=== PATIENT | male | born 1975 | race Two or more races ===

== ENCOUNTER 2025-02-15 14:14 | Emergency (ER) | payer BC, OTHER ==
[~2025-02-15] VITALS: Ht 157.5 cm; Wt 88.5 kg
--- NOTE | 2025-02-15 14:57 | ED.PDOC ---
History of Present Illness HPI Comments 49 y/o M, with PMHx of gallstones presents to the ED for CC of back pain. Patient states, he has been experiencing RUQ abdominal pain that radiates to his back x1week. Patient reports, that he was suppose to receive a laparoscopic cholecystectomy to remove stones however, has not had the procedure done yet; unknown scheduled date. Patient denies nausea, vomiting, diarrhea, dysuria, hematuria, fever, or chills. No other symptoms or modifying factors are present at this time. Chief Complaint: Back Pain Time Seen by MD: 14:50 Reviewed Notes: Nurses Notes, Medications, Allergies Allergies: Coded Allergies: NO KNOWN ALLERGIES (Unverified , 02/15/25) Information Source: Patient Mode of Arrival: Ambulatory Severity: Moderate Timing: Weeks Duration: Since onset Prehospital treatment: None Past Medical History PAST MEDICAL HISTORY: Gallstones Surgical History: Denies all surgeries Family History Family History: Unknown Social History Smoker: Non-Smoker Alcohol: Denies ETOH Use Drugs: Denies Drug Use Lives In: Home Constitutional: denies: chills, diaphoresis, fatigue, fever, malaise, sweats, weakness, others EENTM: denies: blurred vision, double vision, ear bleeding, ear discharge, ear drainage, ear pain, ear ringing, eye pain, eye redness, hearing loss, mouth pain, mouth swelling, nasal discharge, nose bleeding, nose congestion, nose pain, photophobia, tearing, throat pain, throat swelling, voice changes, others Respiratory: denies: cough, hemoptysis, orthopnea, SOB at rest, shortness of breath, SOB with excertion, stridor, wheezing, others Cardiovascular: denies: chest pain, dizzy spells, diaphoresis, Dyspnea on exertion, edema, irregular heart beat, left arm pain, lightheadedness, palpitations, PND, syncope, others Gastrointestinal: denies: abdomen distended, abdominal pain, blood streaked bowels, constipated, diarrhea, dysphagia, difficulty swallowing, hematemesis, melena, nausea, poor appetite, poor fluid intake, rectal bleeding, rectal pain, vomiting, others Genitourinary: denies: burning, dysuria, flank pain, frequency, hematuria, incontinence, penile discharge, penile sore, pain, testicle pain, testicle swelling, urgency, others Neurological: denies: dizziness, fainting, headache, left sided numbness, left sided weakness, numbness, paresthesia, pre-existing deficit, right sided numbness, right sided weakness, seizure, speech problems, tingling, tremors, weakness, others Musculoskeletal: reports: back pain; denies: gout, joint pain, joint swelling, muscle pain, muscle stiffness, neck pain, others Integumetry: denies: bruises, change in color, change in hair/nails, dryness, laceration, lesions, lumps, rash, wounds, others Allergic/Immunocompromised: denies: Difficulty Healing, Frequent Infections, Hives, Itching, others Hematologic/Lymphatic: denies: anemia, blood clots, easy bleeding, easy bruising, swollen glands, others Endocrine: denies: excessive hunger, excessive sweating, excessive thirst, excessive urination, flushing, intolerance to cold, intolerance to heat, unexplained weight gain, unexplained weight loss, others Psychiatric: denies: anxiety, bipolar disorder, depression, hopeless, panic disorder, schizophrenia, sleepless, suicidal, others All Other Systems: Reviewed and Negative Physical Exam General Appearance: Moderate Distress HEENT: Normal ENT Inspection, Pharynx Normal, TMs Normal Neck: Full Range of Motion, Non-Tender, Normal, Normal Inspection Respiratory: Chest Non-Tender, Lungs Clear, No Accessory Muscle Use, No Respiratory Distress, Normal Breath Sounds Cardiovascular: No Edema, No JVD, No Murmur, No Gallop, Normal Peripheral Pulses, Regular Rate/Rhythm Breast Exam: Deferred Gastrointestinal: No Organomegaly, Non Tender, No Pulsatile Mass, Normal Bowel Sounds, Soft Genitalia: Deferred Pelvic: Deferred Rectal: Deferred Extremities: No calf tenderness, Normal capillary refill, Normal inspection, Normal range of motion, Non-tender, No pedal edema Musculoskeletal : Apperance: Normal Neurologic: Alert, road boss II-XII nml as Tested, No Motor Deficits, Normal Affect, Normal Mood, No Sensory Deficits Cerebellar Function: Normal Reflexes: Normal Skin: Dry, Normal Color, Warm Peripheral Pulses: 3+ Radial (R), 3+ Radial (L) Lymphatic: No Adenopathy Was a procedure done? Was a procedure done?: No Differential Dx Considerations may include: cholecystitis, cholelithiasis, musculoskeletal X-Ray, Labs, Meds, VS Vital Signs Date Time Temp Pulse Resp B/P (MAP) Pulse Ox O2 Delivery O2 Flow Rate FiO2 02/15/25 16:00 Room Air* 0 21 02/15/25 15:58 98.0 68 15 128/68 (88) 98 98.0 02/15/25 14:16 99.2 65 15 128/80 96 99.2 Current Medications Medications (Trade) Dose Ordered Sig/Pipo Route Start Time Stop Time Status Last Admin Acetaminophen/ Hydrocodone Bitart (Barre 10/325MG Tab) 1 tab ONCE ONCE PO 02/15/25 15:15 02/15/25 15:16 DC 02/15/25 15:57 Patient alert. Complaining of back pain. Vitals stable. Answering questions. Possible heat exhaustion. Establish intravenous access. Was given fluids. Explained to the patient. Continue monitoring. [place] [id number] Ph: [phone] DIAGNOSTIC IMAGING Diagnostic Imaging Report : [id number] Signed PATIENT: AVA ARRIAGA ACCT: [id number] UNIT: [id number] : 1975 LOC: ER ROOM / BED: / AGE / SEX: 49 / M ADM STATUS: REG ER SERVICE 13 ORDERING PHYSICIAN: DANIELA HOLM MD PROCEDURE(s): LS - LUMBAR SPINE 4+ VIEW REASON: fall ORDER NUMBER(s): [id number], ACCESSION NUMBER(s): [id number] XY LUMBAR SPINE 4+ VIEW, HISTORY: fall COMPARISON: None TECHNICAL DATA: Frontal and lateral views were obtained of the lumbar spine . FINDINGS: There are 5 lumbar type vertebral bodies. Lumbar curvature is within normal limits. There is no spondylolisthesis. Vertebral body heights are maintained. Disk heights are normal. The facet joints appear normal. The sacroiliac joints are symmetric. Paraspinal soft tissues are within normal limits. IMPRESSION: No acute fracture or dislocation of the lumbar spine. ATED BY: KRAIG CORLEY MD DICTATED DATE/TIME: 02/15/251555 SIGNED BY: KRAIG CORLEY MD SIGNED DATE/TIME: 02/15/251555 CC: Time of 1ST Reevaluation: 15:20 Reevaluation 1ST: Unchanged Patient Education/Counseling: Diagnosis, Treatment Family Education/Counseling: No Family Present SEPSIS Sepsis Screen Date sepsis recognized/suspect: Feb 15, 2025 Time Sepsis recognized/suspect: 1419 Recent Procedure: No On Antibiotic Therapy: No Respiratory Rate >20: No Heart Rate >90: No Temp<36 C (96.8 F) or >38.3 C: No SBP <90 or MAP <65 mmHG: No New Acute Mental Status Change: No Is the patient on CPAP, BIPAP,: No Physician Orders Lumbar Spine 4+ View (02/15/25 15:14) Sodium Chloride 0.9% (02/15/25 16:00) Vital Signs Date Time Temp Pulse Resp B/P (MAP) Pulse Ox O2 Delivery O2 Flow Rate FiO2 02/15/25 16:00 Room Air* 0 21 02/15/25 15:58 98.0 68 15 128/68 (88) 98 98.0 02/15/25 14:16 99.2 65 15 128/80 96 99.2 Medications Medications Dose Ordered Sig/Pipo Route Start Time Stop Time Status Last Admin Dose Admin Acetaminophen/ Hydrocodone Bitart 1 tab ONCE ONCE PO 02/15/25 15:15 02/15/25 15:16 DC 02/15/25 15:57 Departure 1 Departure Time of Disposition: 15:54 Impression: Primary Impression: Degenerative disc disease Qualified Codes: M51.369 - Other intervertebral disc degeneration, lumbar region without mention of lumbar back pain or lower extremity pain Disposition: 01 HOME / SELF CARE / HOMELESS Condition: Good Discharged With: Self Critical Care Note Critical Care Time?: No Stability Stability form required: No Heart Score Heart Score: Heart Score Response (Comments) Value History N/A 0 EKG N/A 0 Age N/A 0 Risk Factors N/A 0 Troponin N/A 0 Total 0 I personally scribed for DANIELA HOLM MD ([email or web address]) on 02/15/25 at 14:57. Electronically submitted by Ava Humphries ([email or web address]). I personally scribed for DANIELA HOLM MD ([email or web address]) on 02/15/25 at 16:08. Electronically submitted by Ava Humphries ([email or web address]). DANIELA HOLM MD Feb 15, 2025 14:57
[2025-02-15] MEDS: HYDROcodone-ACET 10/325MG TAB PO ONE (15:57)
[2025-02-15 15:58] VITALS: BP 128/68; PULSE 68; RESP 15; TEMP 98; O2SAT 98
--- NOTE | 2025-02-15 15:58 | DVH ---
XY LUMBAR SPINE 4+ VIEW, HISTORY: fall COMPARISON: None TECHNICAL DATA: Frontal and lateral views were obtained of the lumbar spine . FINDINGS: There are 5 lumbar type vertebral bodies. Lumbar curvature is within normal limits. There is no spond ylolisthesis. Vertebral body heights are maintained. Disk heights are normal. The facet joints appear normal. The sacroiliac joints are symmetric. Paraspinal soft tissues are within normal limits. IMPRESSION: No acute fracture or dislocation of the lumbar spine.
[2025-02-15] MEDS: SODIUM CHLORIDE 0.9% 1,000 ML IV ONE (16:05)
== END 2025-02-15 17:55 | disposition home or self-care (01) ==
LOC: ER 14:14
DX: M51.369 Other intervertebral disc degeneration, lumbar region without mention of lumbar back pain or lower extremity pain (principal)
CPT/HCPCS: 72110